=== PATIENT | male | born 1995 | race Caucasian/White ===

== ENCOUNTER 2019-10-18 00:52 | Emergency (ER) | payer OTHER ==
[2019-10-18 03:08] LABS: ABSOLUTE LYMPHOCYTES (AUTO) 2.3 10^3/uL (0.5-4.7); ABSOLUTE MONOCYTES (AUTO) 0.7 10^3/uL (0.1-1.4); ABSOLUTE NEUT (AUTO) 7.4 10^3/uL (1.7-8.2); BASOPHILS % (AUTO) 0.2 % (0-2); EOSINOPHILS % (AUTO) 0.2 % (0-6); HEMATOCRIT 46.2 % (37.9-51.0); HEMOGLOBIN 16.3 g/dL (13.5-17.0); LYMPHOCYTES % (AUTO) 22.3 % (13-45); MEAN CORPUSCULAR HEMOGLOBIN 29.7 pg (27.0-33.4); MEAN CORPUSCULAR HGB CONC 35.2 g/dL (32.0-36.0); MEAN CORPUSCULAR VOLUME 84 fl (80-97); MONOCYTES % (AUTO) 6.4 % (3-13); PLATELET COUNT 273 10^3/uL (150-450); RED BLOOD COUNT 5.47 10^6/uL (4.35-5.55); RED CELL DISTRIBUTION WIDTH 12.5 % (11.5-14.0); SEGMENTED NEUTROPHILS % (AUTO) 70.9 % (42-78); TOTAL CELLS COUNTED % (AUTO) 100 %; WHITE BLOOD COUNT 10.4 10^3/uL (4.0-10.5)
[2019-10-18 03:17] LABS: ALBUMIN 4.9 g/dL (3.5-5.0); ALKALINE PHOSPHATASE 68 U/L (38-126); ANION GAP 9 (5-19); ASPARTATE AMINO TRANSFERASE 36 U/L (17-59); BILIRUBIN,TOTAL 0.6 mg/dL (0.2-1.3); BLOOD UREA NITROGEN 11 mg/dL (7-20); CALCIUM 10.1 mg/dL (8.4-10.2); CARBON DIOXIDE 28 mmol/L (22-30); CHLORIDE 102 mmol/L (98-107); GLUCOSE 101 mg/dL (75-110); POTASSIUM 3.9 mmol/L (3.6-5.0); TOTAL PROTEIN 8.1 g/dL (6.3-8.2)
[2019-10-18 06:09] LABS: APPEARANCE,URINE CLEAR; BILIRUBIN,URINE NEGATIVE (NEGATIVE); COLOR,URINE AMBER; GLUCOSE, URINE NEGATIVE (NEGATIVE); KETONES,URINE NEGATIVE (NEGATIVE); LEUKOCYTE ESTERASE,URINE NEGATIVE (NEGATIVE); NITRITE,URINE NEGATIVE (NEGATIVE); PROTEIN,URINE 30 mg/dL (NEGATIVE); UROBILINOGEN,URINE NEGATIVE mg/dL (<2.0)
--- NOTE | 2019-10-18 06:35 | ER Document Report ---
ED General - General Chief Complaint: Groin Pain Stated Complaint: HERNIA UNABLE TO USE RESTROOM - HPI Notes: Chief complaint: Left groin hernia and difficulty with urination HPI: 24-year-old male with history of ADHD taking Vyvanse comes in today with 2 complaints. States that he believes he has had a left-sided groin hernia for several years although he is never seen a physician about this. He complains of intermittent soreness in that area. Within the last several days he is also had difficulty voiding and states that within a 12-hour period prior to arrival he was not able to void at all. He denies any similar problems in the past. He denies any drug abuse. No prescription medicines other than his Vyvanse which she is been taking long-term. He denies back pain. He denies nausea vomiting. He denies dysuria or change in the appearance of the urine. He denies any injuries. - Related Data Allergies/Adverse Reactions: No Known Allergies Allergy (Unverified 10/18/19 01:43) Home Medications: VIVANCE Past Medical History - General Information source: Patient - Social History Smoking Status: Never Smoker Frequency of alcohol use: Occasional Drug Abuse: None Occupation: Works with a [employer] service Lives with: Alone Family History: Reviewed & Not Pertinent Patient has homicidal ideation: No - Past Medical History Cardiac Medical History: Reports: None EENT Medical History: Reports: None Neurological Medical History: Reports: None Endocrine Medical History: Reports: None Renal/ Medical History: Reports: None Malignancy Medical History: Reports None GI Medical History: Reports: None Musculoskeletal Medical History: Reports None Psychiatric Medical History: Reports: Hx Attention Deficit Hyperactivity Disorder Traumatic Medical History: Reports: None Surgical Hx: Negative Review of Systems - Review of Systems Notes: Constitutional: Negative for fever. Weight stable. HENT: Negative for sore throat. Eyes: Negative for visual changes. Cardiovascular: Negative for chest pain. Respiratory: Negative for shortness of breath. Gastrointestinal: Negative for abdominal pain, vomiting or diarrhea. Genitourinary: As per HPI. Musculoskeletal: Negative for back pain. Skin: Negative for rash. Neurological: Negative for headaches, weakness or numbness. 10 point ROS negative except as marked above and in HPI. Physical Exam - Vital signs Vitals: Temp Pulse Resp BP Pulse Ox 98.6 F 92 16 158/74 H 98 10/18/19 01:14 10/18/19 01:14 10/18/19 01:14 10/18/19 01:14 10/18/19 01:14 - Notes Notes: GENERAL: Well-developed well-nourished male approximately stated age appearing in no acute distress. SKIN: Good turgor. Mild acneform rash of facial area and upper trunk. HEAD: Normocephalic atraumatic. EYES: PERRLA. EOMI. Conjunctivae and sclerae clear. EARS: CANALS AND TMS CLEAR. NOSE: CLEAR. MOUTH: Moist mucosa. Good dentition. No stridor or edema. No drooling. NECK: Supple. No masses or thyromegaly. No adenopathy. Carotids 2+ without bruits. No JVD. BACK: Symmetrical without tenderness. CHEST: Respirations unlabored. Breath sounds clear and symmetrical. HEART: Regular rhythm. No murmur gallop or rub. ABDOMEN: Soft nontender without masses, organomegaly or rebound. Bowel sounds normally active. No bruits. GENITALIA: Normal circumcised male. No urethral discharge. Small left inguinal hernia easily reducible. EXTREMITIES: No edema. No calf tenderness. Cap refill less than 1.5 seconds. Dorsalis pedis and posterior tibial pulses 3+ and symmetrical. NEUROLOGICAL: GCS 15. Alert and oriented x3. Normal gait. Fluent speech. Cranial nerves II through XII intact. Sensorimotor and cerebellar normal. Normal tone. PSYCHIATRIC: Slightly flat affect. Course - Re-evaluation Re-evalutation: 10/18/19 10:41 Urinalysis normal. Creatinine normal CBC is unremarkable. Patient had a residual urine of about 100 cc when catheterized. Still complaining of difficulty voiding. Case was discussed with urology pmo consultant, Dr. Rebolledo, with [facility] urology and he feels this is probably related to the ADHD the medication. He suggested that we try the patient on Flomax and schedule an office follow-up. - Vital Signs Vital signs: Temp Pulse Resp BP Pulse Ox 98 F 80 16 136/82 H 100 10/18/19 10:20 10/18/19 10:20 10/18/19 10:20 10/18/19 10:20 10/18/19 10:20 - Laboratory Result Diagrams: 10/18/19 02:56 10/18/19 02:56 Laboratory results interpreted by me: 10/18/19 10/18/19 02:56 05:50 ALT 71 H Urine Protein 30 H Discharge - Discharge Clinical Impression: Urinary retention Condition: Stable Disposition: HOME, SELF-CARE Additional Instructions: Urinary Incontinence Urinary incontinence is unexpected leakage of urine from the bladder. It can be caused by damaged or weak pelvic muscles (such as after childbirth), b ladder inflammation, weak bladder sphincter (valve), medications, prostate problems, and nerve problems. This is a common problem, especially in our older patients. Treatment of incontinence depends on the severity, and on the underlying cause. We test for urinary tract infection and examine for prostate enlargement or prolapse (sagging down) of the bladder and uterus. If we suspect a medicine may be contributing to the problem, we may stop it or lower the dosage. If the problem can't be corrected with medication or surgery, you may need to use absorbent underwear. For men, a "condom catheter" over the penis can collect urine. It's sometimes necessary to keep a catheter inside the bladder. The following are different types of urinary incontinence. Stress incontinence: A sudden burst of urine with cough or sneeze. This is common in women with multiple children. Pelvic muscle (Kegel) exercises may help. An incontinence pad catches the occasional accident. If severe, an operation to suspend of the bladder may correct the problem. Overflow incontinence: Leakage from an over-filled bladder. This type of incontinence is usually caused by an enlarged prostate or narrowed urethra. Prostatic obstruction can be treated with medication. Severe cases may require prostate surgery. Neurogenic bladder: Sudden emptying of the bladder due to injury or disease of the nerves that control the bladder, or overflow caused by lack of bladder contraction (atonic bladder). This usually requires a catheter, or the wearing of incontinence undergarments. A weak (atonic) bladder sometimes responds to medicine such as bethanechol (Urecholine). Overactive bladder: The bladder is irritable and tightens when it's not full. The sudden urge to urinate makes it hard to avoid passage of urine. This can often be treated with medication such as oxybutynin. Sphincter atony: The muscle that holds urine in the bladder is weak. This often causes incontinence at night. Medication such as imipramine or psuedoephedrine can sometimes help. Take prescribed medication as directed. Follow-up with referral urologist. Prescriptions: Tamsulosin HCl [Flomax 0.4 mg Cap.sr] 0.4 mg PO DAILY 14 Days #14 cap.sr.24h Referrals: SCOTT REBOLLEDO MD [NO LOCAL MD] - Follow up as needed
[2019-10-18 10:21] VITALS: BP 136/82
== END 2019-10-18 11:31 | disposition home or self-care (01) ==
LOC: ER 00:52
DX: R33.9 Retention of urine, unspecified (principal); F90.9 Attention-deficit hyperactivity disorder, unspecified type; Z79.899 Other long term (current) drug therapy
CPT/HCPCS: 36415; 80053; 81001; 83690; 85025; 99283

== ENCOUNTER 2020-02-11 08:03 | Day surgery (SDC) | payer OTHER, MEDICAID ==
[~2020-02-11 08:03] MED LIST: CEFAZOLIN 2 GM/D5W RTU 2 GM/50 ML RTUPB IV PRN; CEFAZOLIN SODIUM 2 GM in DEXTROSE 5%-WATER 100 ML IV PRN; FENTANYL CITRATE INJ/PF 250 MCG/5 ML AMPULE ONE; LACTATED RINGERS 1000 ML IV PRN; LIDOCAINE 0.5% INJ-PF (5 MG/ML) 50 ML SDV SUBCUT PRN; MIDAZOLAM 2 MG/2 ML INJ ONE; PROPOFOL INJ 200 MG/20 ML VIAL IV ONE
[2020-02-11] MEDS ORDERED: CEFAZOLIN 2 GM/D5W RTU 2 GM/50 ML RTUPB IV ONE (08:16)
[2020-02-11] MEDS ORDERED: BUPIVACAINE INJ/PF LIPOSOME/PF 266 MG/20 ML SDV ONE (10:09)
[2020-02-11] MEDS ORDERED: PROMETHAZINE HCL INJ 25 MG/1 ML VIAL IV PRN ×2 (10:57)
[2020-02-11] MEDS ORDERED: DIPHENHYDRAMINE HCL 50 MG/ML VIAL IV PRN (10:57)
[2020-02-11] MEDS ORDERED: MEPERIDINE HCL/PF INJ 25 MG/1 ML DISP.SYRIN IV PRN (10:57)
[2020-02-11] MEDS ORDERED: MORPHINE SULFATE 10 MG/ML INJ IV PRN (10:57)
[2020-02-11] MEDS ORDERED: FENTANYL CITRATE INJ/PF 100 MCG/2 ML AMPUL IV PRN ×3 (10:57)
[2020-02-11] MEDS ORDERED: OXYCODONE-ACETAMINOPHEN 5-325 MG TABLET PO PRN ×2 (10:57→12:17)
[2020-02-11] MEDS ORDERED: LABETALOL HCL INJ 20 MG/4 ML DISP.SYRIN IV PRN (10:57)
[2020-02-11] MEDS ORDERED: ONDANSETRON HCL INJ/PF 4 MG/2 ML SDV IV PRN (10:57)
[2020-02-11] MEDS ORDERED: HYDROMORPHONE HCL INJ/PF 2 MG/ML AMPULE ONE (11:38)
[2020-02-11] MEDS ORDERED: FENTANYL CITRATE INJ/PF 100 MCG/2 ML AMPUL ONE (12:09)
--- NOTE | 2020-02-11 12:14 | Operative Report ---
Nonrecallable Operative Report DATE OF SURGERY: 02/11/20 PREOPERATIVE DIAGNOSIS: left possible bilateral inguinal hernia POSTOPERATIVE DIAGNOSIS: bilateral inguinal hernia OPERATION: laparoscopic repair of bilateral inguinal hernia SURGEON: VICTOR MANUEL FREEMAN ANESTHESIA: GA TISSUE REMOVED OR ALTERED: none COMPLICATIONS: none ESTIMATED BLOOD LOSS: 0 INTRAOPERATIVE FINDINGS: see note PROCEDURE: Patient was brought to the operating room in awake and alert in stable condition placed on the operative table supine position induced under general anesthesia intubated. Her abdomen was prepped and draped in usual sterile fashion for the procedure. After appropriate timeout site verification the procedure commenced. A curvilinear infraumbilical incision was made with a 15 blade dissection was carried down through subcutaneous tissue with Bovie cautery to the fascia of the rectus abdominis muscle was reached. A transverse incision was made in the fascia and the muscle was retracted laterally spacemaker balloon was then placed on top of the posterior sheath and manipulated down to the pubic symphysis. Under direct vision it was insufflated. After creating a space it was removed. The working port balloontipped was placed on top of the posterior sheath in the retroperitoneum and the balloon tip was insufflated. Then under direct vision using the scope to 5 mm ports placed in the midline. Attention was first turned to the left side where he had a known palpable inguinal hernia the transversalis muscle was identified laterally and the peritoneum was dissected off the muscle and continued inferiorly until we reached the inguinal canal internal ring. The cord structures were identified there was a large lipoma in the hernia sac which was manipulated out of it the cord structures were then dissected off the sac which was posterior lysed. Niko's ligament rectus muscle were all identified. We then used a piece of polypropylene mesh 3 x 6 cm in diameter placed into the retroperitoneum with a slit down at side tacked posteriorly to Niko's ligament anterior to the rectus abdominis and laterally to the transversalis muscle being careful not to injure the lateral femoral cutaneous nerve. The cord was then wrapped and the mesh was fixed in place with the absorb attacks. After completion of the repair we turned attention to the right side similarly the peritoneum was dissected off the transversalis muscle we identified a hernia defect the precut cord was mobilized the sac was posterior lysed and then Niko's ligament was identified. A piece of polypropylene mesh was also utilized placed into the retroperitoneum fixed posteriorly to the Niko's ligament anterior to the rectus muscle laterally to transversalis muscle wrapping the cord. Once this was accomplished we reduce the pneumoperitoneum remove the ports closed the fascial defect at the umbilicus with 0 Vicryl and then closed all 3 skin incisions with intracuticular 4-0 Monocryl Steri-Strips completed the procedure Estimated blood loss was less than 5 cc sponge and needle counts correct x2 the patient was awakened in the operative extubated transferred recovery in stable condition no complications
--- NOTE | 2020-02-11 12:17 | Discharge Summary ---
Discharge Summary (SDC) - Discharge Final Diagnosis: bilat inguinal hernia Date of Surgery: 02/11/20 Discharge Date: 02/11/20 Condition: Good Prescriptions: Oxycodone HCl/Acetaminophen [Percocet 10-325 Mg Tablet] 1 each PO Q6HP PRN #15 tablet PRN Reason: Referrals: JONAH TYLER FNP [Primary Care Provider] - Discharge Diet: As Tolerated Discharge Activity: Activity As Tolerated, No Lifting Over 10 Pounds Report the Following to Your Physician Immediately: Increase in Pain - pt needs a f/u iwth me in 10-14 days, Fever over 101 Degrees, Unusual Bleeding
[2020-02-11] MEDS ORDERED: OXYCODONE-ACETAMINOPHEN 5-325 MG TABLET ONE (13:00)
[2020-02-11] MEDS ORDERED: METOCLOPRAMIDE HCL INJ/PF 10 MG/2 ML SDV ONE (13:35)
[2020-02-11 14:08] VITALS: BP 125/83
[2020-02-11] MEDS ORDERED: DEXAMETHASONE SOD PHOSPHATE INJ 4 MG/1 ML VIAL ONE (14:19)
[2020-02-11] MEDS ORDERED: ROCURONIUM BROMIDE INJ 50 MG/5 ML VIAL IV ONE (14:19)
[2020-02-11] MEDS ORDERED: SUCCINYLCHOLINE CHLORIDE INJ 200 MG/10 ML VIAL ONE (14:19)
[2020-02-11] MEDS ORDERED: GLYCOPYRROLATE 1 MG/5 ML VIAL ONE (14:19)
[2020-02-11] MEDS ORDERED: DIPHENHYDRAMINE HCL 50 MG/ML VIAL ONE (14:19)
[2020-02-11] MEDS ORDERED: NEOSTIGMINE METHYLSULFATE 10 MG/10 ML VIAL ONE (14:19)
[2020-02-11] MEDS ORDERED: ONDANSETRON HCL INJ/PF 4 MG/2 ML SDV ONE (14:19)
== END 2020-02-11 14:13 | disposition home or self-care (01) ==
LOC: OROUT 08:03
PROVIDERS: ATTEND Surgery
DX: K40.20 Bilateral inguinal hernia, without obstruction or gangrene, not specified as recurrent (principal); Z03.818 Encounter for observation for suspected exposure to other biological agents ruled out; E66.9 Obesity, unspecified
CPT/HCPCS: 87635; 00840; 49650; C1758; C1781 ×2; C1713; J2250; J3490 ×2; J1100; J1200; J3010 ×2; J2765; J2710; J1170; J0330; J2405; J2704; J0690; C9290; C9803; 840